=== PATIENT | male | born 1995 | race Caucasian/White ===

== ENCOUNTER 2023-03-01 10:23 | Emergency (ER) | payer MEDICAID ==
[~2023-03-01] VITALS: Ht 180.3 cm; Wt 81.6 kg
[2023-03-01 10:41] VITALS: BP_SYST 144; PULSE 84; RESP 18; TEMP 97; O2SAT 100
[2023-03-01 11:49] VITALS: BP_SYST 144; PULSE 84; RESP 18; TEMP 97; O2SAT 100
== END 2023-03-01 11:20 | disposition home or self-care (01) ==
LOC: SED 10:23
DX: R59.1 Generalized enlarged lymph nodes (principal); Z79.899 Other long term (current) drug therapy
CPT/HCPCS: 99281